=== PATIENT | female | born 2000 | race Caucasian/White ===

== ENCOUNTER 2023-01-14 20:16 | Inpatient (IN) ==
[2023-01-14] MEDS ORDERED: LIDOCAINE 1% LOCAL 20 ML VIAL INFIL PRN (21:14)
[2023-01-14] MEDS ORDERED: OXYTOCIN 30 UNITS/500 ML BAG IV PRN (21:14)
--- NOTE | 2023-01-14 21:32 | Labor Progress Brief Note ---
Date of Service January 14, 2023 Subjective 22yo @ 39w4d with PROM at 2am this morning, confirmed in the office earlier today by Ernesto Klely who advised the patient to present directly to L&D. The patient did not present to L&D and I called her myself around 5pm to ask if she was OK and if she was coming in. At that time she did not intend to come in as she did not want to be induced. She later called back to L&D and spoke with a nurse who further advised her that she should come to L&D, and the patient then agreed to come in as she was becoming worried about the baby. Upon presentation she has good FM, clear LOF, no VB and minimal irregular contractions. She notes that her cervix was "just a fingertip" dilated in the office today. She is very anxious about what having an induction will be like, and whether it will increase her risks of . Counseled on the differences between natural labor and IOL, and discussed that in the setting of PROM x 19 hours, evidence is clearly in favor of proceeding with IOL rather than waiting any longer. After answering the questions of the patient and the FOB, he says of induction, "that sounds reasonable" and she states she would like to proceed with IOL. Assessment & Plan (1) Supervision of normal intrauterine in primigravida: (2) PROM (premature rupture of membranes): Plan: IOL with pitocin, patient currently planning NCB, can have epidural on request if she changes her mind. Admission and Anticipated Discharge Date Admission Date: January 14, 2023 Physical Exam Constitutional: WD/WN, vitals as above Eyes: PERRL, conjunctivae normal, anicteric sclerae ENMT: external ear and nose normal, oropharynx normal Neck: supple Respiratory: normal respiratory effort and able to speak in complete sentences; no respiratory distress Cardiovascular: Rate/Rhythm: regular rate and regular rhythm Gastrointestinal (Abdomen): Gravid / AGA, nontender Musculoskeletal: no cyanosis or clubbing, extremities motor strength 5/5 Skin: no rashes, warm and dry Neurologic: patellar DTR's 2+ bilat, sensation intact Psychiatric: A+Ox3, euthymic affect Genitourinary: Speculum/Bimanual Exam: no vaginal lesions, no vaginal bleeding and uterus nontender OB Exam Abdomen: + vertex, + estimated weight (7) and + irregular contractions Manual OB Exam: + cervical dilation 2 cm, + cervical effacement 80%, + station -2 and + amniotic fluid clear OB Exam Monitor Tracing: + external FHT monitor used, + external uterine monitor used and + category I Lymphatic: no cervical or axillary lymphadenopathy Results & Data ([facility]) Vital Signs (Past 12 Hours) Vital Signs Temp Pulse Resp BP 01/14/23 20:30 96 H 126/74 01/14/23 20:25 97.5 F L 18 Coding Level of Care Code None Diagnoses Supervision of normal intrauterine in primigravida Z34.00 PROM (premature rupture of membranes) O42.90
[2023-01-14 21:55] LABS: Hematocrit (blood only) 34.2 % (37.0-47.0); Hemoglobin 11.9 g/dl (12.0-16.0); Mean Corpuscular Hemoglobin 29.9 pg (25.0-34.0); Mean Corpuscular Hgb Conc 34.8 g/dL (32.0-36.0); Mean Corpuscular Volume 85.9 fL (80.0-100.0); Mean Platelet Volume 10.7 fL (9.4-12.4); Platelet Count 315 K/uL (130-400); RDW Standard Deviation 40.2 fL (36.4-46.3); Red Blood Count 3.98 M/uL (4.20-5.40); White Blood Count 12.68 K/ul (4.8-10.8)
[2023-01-14] MEDS: LACTATED RINGER'S 1,000 ML IV PRN (22:33)
[2023-01-15] MEDS ORDERED: SODIUM CHLORIDE 0.9% INJ 10 ML VIAL ONE (02:22)
[2023-01-15] MEDS ORDERED: ePHEDrine sulfate 50 MG/ML AMP ONE (02:22)
[2023-01-15] MEDS ORDERED: fentaNYL citrate 100 MCG/2 ML VIAL ONE ×2 (02:22→12:31)
[2023-01-15] MEDS ORDERED: LIDOCAINE 2%/EPINEPHRINE 1:200,000 20 ML SDV ONE (02:23)
[2023-01-15] MEDS ORDERED: fentaNYL 2MCG/ML ROPIVACAINE 1.25MG/ML 100 ML BAG EPI ONE (02:23)
[2023-01-15] MEDS ORDERED: BUPIVACAINE 0.25% 30 ML VIAL ONE (02:23)
[2023-01-15] MEDS: LACTATED RINGER'S 1,000 ML IV PRN ×2 (03:15→10:40)
[2023-01-15] MEDS ORDERED: fentaNYL 2MCG/ML ROPIVACAINE 1.25MG/ML 100 ML BAG EPI PRN (05:10)
[2023-01-15] MEDS ORDERED: NALOXONE HCL 1 MG in SODIUM CHLORIDE 0.9% 1000ML 1,000 ML IV PRN (05:10)
[2023-01-15] MEDS ORDERED: NALOXONE HCL 0.4 MG/1 ML VIAL/CARP IV PRN (05:10)
[2023-01-15] MEDS ORDERED: ePHEDrine sulfate 50 MG/ML AMP IV PRN (05:10)
--- NOTE | 2023-01-15 06:20 | Labor Progress Brief Note ---
Date of Service January 15, 2023 Subjective Patient comfortable with epidural. Discussed with Noe Velasquez who just recently checked patient's cervix during straight cath, so not re-examined at this time, as patient is now resting / did not awaken her. Assessment & Plan (1) PROM (premature rupture of membranes): Plan: Continue pitocin, epidural, progress occurring. FHT reassuring and no maternal fever; GBS neg. Admission and Anticipated Discharge Date Admission Date: January 14, 2023 Physical Exam Genitourinary: 125 mod maikol + acc -dec [place] Q2-5 (inverted on tracing) Pit @ 13 Cervix per Robert is 4-5/80/-2 Results & Data ([facility]) Vital Signs (Past 12 Hours) Vital Signs Temp Pulse Resp BP Pulse Ox 01/15/23 06:11 77 113/58 L 97 01/15/23 05:56 97 01/15/23 05:56 86 01/15/23 05:56 94 H 121/73 01/15/23 05:43 78 117/65 01/15/23 05:41 77 97 01/15/23 05:26 71 112/64 97 01/15/23 05:13 78 117/65 01/15/23 05:11 78 96 01/15/23 04:56 78 121/74 97 01/15/23 04:41 65 97 01/15/23 04:42 85 125/73 01/15/23 04:26 72 122/60 97 01/15/23 04:11 97 01/15/23 04:11 76 01/15/23 04:11 85 125/67 01/15/23 03:57 75 126/67 01/15/23 03:56 78 97 01/15/23 03:41 97 01/15/23 03:41 81 01/15/23 03:41 76 130/72 01/15/23 03:27 76 124/69 01/15/23 03:26 74 97 01/15/23 03:12 85 93 01/15/23 03:11 78 130/66 01/15/23 03:09 99 01/15/23 03:09 86 01/15/23 03:09 93 H 128/67 01/15/23 03:07 88 134/80 01/15/23 03:04 90 100 01/15/23 03:05 92 H 133/77 01/15/23 03:03 84 127/72 01/15/23 03:02 18 01/15/23 03:02 97.7 F 18 01/15/23 03:00 99 H 141/89 H 01/15/23 02:59 105 H 98 01/15/23 02:54 84 99 01/15/23 02:49 108 H 100 01/15/23 02:30 96 H 132/63 01/14/23 22:54 97.5 F L 18 01/15/23 01:04 83 124/64 01/15/23 01:01 16 01/15/23 01:01 97.7 F 16 01/15/23 00:02 73 101/52 L 01/14/23 23:02 88 118/61 01/14/23 22:36 88 123/76 01/14/23 20:30 96 H 126/74 01/14/23 20:25 97.5 F L 18 Coding Level of Care Code None Diagnoses PROM (premature rupture of membranes) O42.90
--- NOTE | 2023-01-15 06:25 | Anesthesiology Consultation ---
Date of Service January 15, 2023 Assessment & Plan ASA ASA2 Proposed Anesthesia Anesthesia Type: Labor Epidural Risk / Benefits Reviewed With: PT / POA / Parent / Guardian, Accepts Plan and Informed Consent Obtained Additional Comments: pt seen during downtime pprocedures History Height/Weight Height: 5 ft 8 in Weight: 80.286 kg Allergies Allergy/AdvReac Type Severity Reaction Status Date / Time No Known Allergies Allergy Verified 01/14/23 11:16 Medications Home Medications Medication Instructions Recorded Confirmed Last Taken prenat.vits,parker,[id number] 1 tab PO DAILY 06/20/22 01/14/23 01/13/23 Active Medications Generic Name Dose Route Start Last Admin Trade Name Freq PRN Reason Stop Dose Admin Oxytocin 30 units in 500 mls @ 13 mls/hr 01/14/23 21:14 01/15/23 06:15 Pitocin IV 01/16/23 21:13 0.9 units/hr .Q24H PRN 15 mls/hr Labor Induction/Augmentation Titration Protocol 0.78 UNITS/HR Lactated Ringer's 1,000 mls @ 125 mls/hr 01/14/23 21:14 01/15/23 03:15 Lr IV 01/16/23 21:13 125 mls/hr .Q8H PRN Administration L&D Protocol Protocol Past Medical History Medical History ADHD Anxiety and depression Exercise / Class Metabolic Activity II 4-5 Yardwork/Stairs/Walk up hill Past Surgical History Surgical History S/P wisdom tooth extraction Past Anesthesia History No Hx of Anesthesia Complications and No Family Hx of Anesthesia Complications History of PONV No Hx of PONV and No Hx of Motion Sickness Social History Smoking Status: Never smoker Hx Alcohol Use: No Hx Substance Use: No Review of Systems denies fever/cough/ colds/ chest pain/ SOB/ GITA denies GITA Physical Exam Vital Signs Last Vital Signs Temp 36.5 C 01/15/23 03:02 Pulse 77 01/15/23 06:11 Resp 18 01/15/23 03:02 BP 113/58 L 01/15/23 06:11 Pulse Ox 97 01/15/23 06:11 ENMT Mouth: no TMJ abnormality and no dentition abnormality Thyromental Distance: > or= 3.5 Finger Breadths Mallampati Class: II Neck neck extension not limited Respiratory normal respiratory effort; no respiratory distress Auscultation: lungs clear to auscultation bilaterally Cardiovascular Rate/Rhythm: regular rate and regular rhythm Neurologic moves all extremities Psychiatric Orientation: alert and oriented x 3 Testing Laboratory Results 01/14/23 21:29
--- NOTE | 2023-01-15 07:47 | Labor Progress Brief Note ---
Date of Service January 15, 2023 Subjective Comfortable with epidural. Accepts cervix check. No pressure. Ongoing LOF clear. Assessment & Plan (1) PROM (premature rupture of membranes): Plan: Continue IOL, epidural, progress continues. Admission and Anticipated Discharge Date Admission Date: January 14, 2023 Physical Exam Genitourinary: Not more dilated than prior RN exam, but 100% effaced and -1 station. FHT Cat 1 [place] Q2-3 Pit @ 17 Results & Data ([facility]) Vital Signs (Past 12 Hours) Vital Signs Temp Pulse Resp BP Pulse Ox 01/15/23 07:42 83 121/74 01/15/23 07:41 82 99 01/15/23 07:26 73 98 01/15/23 07:27 74 125/63 01/15/23 07:12 86 121/60 01/15/23 07:11 106 H 100 01/15/23 06:56 74 97 01/15/23 06:57 72 119/63 01/15/23 05:05 16 01/15/23 05:05 97.5 F L 16 01/15/23 06:41 67 116/57 L 98 01/15/23 06:26 73 97 01/15/23 06:27 72 115/55 L 01/15/23 06:11 77 113/58 L 97 01/15/23 05:56 97 01/15/23 05:56 86 01/15/23 05:56 94 H 121/73 01/15/23 05:43 78 117/65 01/15/23 05:41 77 97 01/15/23 05:26 71 112/64 97 01/15/23 05:13 78 117/65 01/15/23 05:11 78 96 01/15/23 04:56 78 121/74 97 01/15/23 04:41 65 97 01/15/23 04:42 85 125/73 01/15/23 04:26 72 122/60 97 01/15/23 04:11 97 01/15/23 04:11 76 01/15/23 04:11 85 125/67 01/15/23 03:57 75 126/67 01/15/23 03:56 78 97 01/15/23 03:41 97 01/15/23 03:41 81 01/15/23 03:41 76 130/72 01/15/23 03:27 76 124/69 01/15/23 03:26 74 97 01/15/23 03:12 85 93 01/15/23 03:11 78 130/66 01/15/23 03:09 99 01/15/23 03:09 86 01/15/23 03:09 93 H 128/67 01/15/23 03:07 88 134/80 01/15/23 03:04 90 100 01/15/23 03:05 92 H 133/77 01/15/23 03:03 84 127/72 01/15/23 03:02 18 01/15/23 03:02 97.7 F 18 01/15/23 03:00 99 H 141/89 H 01/15/23 02:59 105 H 98 01/15/23 02:54 84 99 01/15/23 02:49 108 H 100 01/15/23 02:30 96 H 132/63 01/14/23 22:54 97.5 F L 18 01/15/23 01:04 83 124/64 01/15/23 01:01 16 01/15/23 01:01 97.7 F 16 01/15/23 00:02 73 101/52 L 01/14/23 23:02 88 118/61 01/14/23 22:36 88 123/76 01/14/23 20:30 96 H 126/74 01/14/23 20:25 97.5 F L 18 Coding Level of Care Code None Diagnoses PROM (premature rupture of membranes) O42.90
[2023-01-15] MEDS ORDERED: LIDOCAINE 2% MPF LOCAL 5 ML VIAL INFIL ONE ×2 (12:31→12:52)
--- NOTE | 2023-01-15 12:42 | Communication Note ---
Date of Service: January 15, 2023 Pt progressed to 9cm dilation, c/o pain. Dosed epidural with 2% lido 5cc + fentanyl 100mcg.
[2023-01-15] MEDS ORDERED: OXYTOCIN 30 UNITS/500 ML BAG IV PRN (15:27)
[2023-01-15] MEDS ORDERED: ACETAMINOPHEN 325 MG TAB PO PRN (15:27)
[2023-01-15] MEDS ORDERED: bisacodyL 10 MG SUPP PR PRN (15:27)
[2023-01-15] MEDS ORDERED: DIPHTHERIA/TETANUS/PERTUSSIS 0.5mL SYR/VIAL (Age 7+yrs) IM ONE (15:27)
[2023-01-15] MEDS ORDERED: HYDROCORTISONE ACETATE 25 MG SUPP PR PRN (15:27)
[2023-01-15] MEDS ORDERED: METHYLERGONOVINE MALEATE 0.2 MG/ML AMP ONE (15:38)
[2023-01-15] MEDS: OXYTOCIN 30 UNITS/500 ML BAG IV PRN ×2 (15:40→16:16)
[2023-01-15] MEDS ORDERED: METHYLERGONOVINE MALEATE 0.2 MG/ML AMP IM STA (16:11)
[2023-01-15] MEDS: IBUPROFEN 600 MG TAB PO PRN ×2 (16:43→21:18)
[2023-01-15] MEDS ORDERED: KETOROLAC 30 MG/ML VIAL ONE (16:47)
--- NOTE | 2023-01-15 17:20 | Delivery Summary ---
Vaginal Delivery Summary Date of Service January 15, 2023 Vaginal Delivery Summary and 2nd Degree LAC Patient is a 22-year-old G1, P0 female EDC of 01/17/2023 who presented with a history of spontaneous rupture of membranes at approximately 2:15 AM on 01/14. She was evaluated in the office early in the morning of 01/14, and was confirmed to have ruptured membranes but no contractions yet. She was instructed to proceed to labor and delivery for further evaluation however she was trying to avoid unneeded interventions and did not present to labor and delivery until after 1800 on 01/14. She was afebrile and not juan on admission. Pitocin augmentation was begun and she received effective epidural analgesia. It was difficult keeping her in a consistent contraction pattern but she progressed to full dilation and then pushed effectively over intact perineum for delivery of a viable female . After the head was delivered the rest the infant delivered easily and was placed on the mother's abdomen first attention and drying. The infant was vigorous and moving all 4 limbs. The cord was clamped and cut after 1 minute. After cord blood was obtained, the placenta was expressed intact with a three-vessel cord. bleeding was controlled with dilute Pitocin and fundal massage. She did require a dose of IM Methergine for control of bleeding. The fundus was then firm and bleeding was small. A second-degree perineal laceration was repaired with 3-0 chromic in the usual fashion. 1% lidocaine was used to infiltrate the perineal laceration site prior to closing the defect. Estimated blood loss is 500 cc. The first 250 cc of blood loss were estimated but after weighing the chux, there was an additional 250 cc of blood loss noted. At this point mother and infant were doing well after delivery. Patient has continued to be afebrile throughout her labor and delivery process. [facility] Vaginal Delivery Charge Delivery Type Details: and 2nd Degree LAC
[2023-01-15] MEDS ORDERED: KETOROLAC 30 MG/ML VIAL IV ONE (17:21)
--- NOTE | 2023-01-15 19:16 | Anesthesia Procedure Note ---
Date of Service January 15, 2023 Anesthesia Post Epidural Note Vital Signs Vital Signs: Temp Pulse Resp BP Pulse Ox 36.8 C 82 18 130/69 96 01/15/23 19:11 01/15/23 19:02 01/15/23 19:11 01/15/23 19:02 01/15/23 15:11 Pain Intensity Bilateral Abdomen: Pain Intensity: 3 Notes Mental Status: alert / awake / arousable Nausea / Vomiting: adequately controlled Pain: adequately controlled Airway Patency, RR, SpO2: stable & adequate BP & HR: stable & adequate Hydration State: stable & adequate Neuraxial Anesthesia: was administered and sensory block is resolving Anesthetic Complications: no major complications apparent and Pt Satisfied with anesthetic care Epidural: Removed without complications and With tip intact
[2023-01-15] MEDS: DOCUSATE SODIUM 100 MG CAP PO SCH (21:18)
[2023-01-15] MEDS: BENZOCAINE 20% AER SPR 82.5 GM CAN EXT PRN (21:19)
[2023-01-16] MEDS: IBUPROFEN 600 MG TAB PO PRN ×3 (03:55→21:10)
--- NOTE | 2023-01-16 06:49 | Obstetrical Progress Note ---
Date of Service January 16, 2023 Assessment & Plan (1) care following vaginal delivery: (2) PROM (premature rupture of membranes): Plan - Feeling well overall. - feeing going well. - Urinating and passing gas appropriately. - Ambulating well in the room. - Pain controlled with ibuprofen. - Hgb on 01/14 was 11.9, pending results for 01/16. - Vitals stable, WNL. Afebrile. - Routine care, progressing well. Anticipate discharge at 24-48 hours . - Plan for outpatient follow-up at 6 weeks . Admission and Anticipated Discharge Date Admission Date: January 14, 2023 Emma Davis is a 22 year old female who has a spontaneous vaginal delivery on 01/15 at 39 5/7 weeks determined by US. She experienced rupture of membranes on 01/14 at approximately 2 am and presented on 01/14 in the AM to the OB outpatient office. She was advised to present to the hospital for imminent delivery at that time and presented later that evening (01/14) for delivery. Her delivery was complicated by prolonged rupture of membranes >36 hours and post- bleeding for which she received a dose of Methergine. Susan is doing well . She is able to ambulate well and does so every 2-3 hours. She is able to void and pass gas normally. She is able to eat normally. She is nursing without issue with her right breast and notes that it is harder to nurse with her left breast. Her pain is currently 4/10 and is being managed by ibuprofen. She describes her current vaginal bleeding as heavy, and she soaked one pad overnight. Review of Systems Review of Systems: Denies fever, chills, sweats. Denies dyspnea or pleuritic pain. Denies chest pain, palpitations, pressure. Denies breast pain. Denies dysuria. Denies headache or visual changes. Physical Exam Physical Exam: General: Alert, oriented. No acute distress. Cardiac: Regular rate and rhythm. No murmurs, rubs, gallops appreciated. Respiratory: Clear to auscultation bilaterally with no wheezes, rales, rhonchi. Normal work of breathing, symmetrical chest rise. Abdomen: Uterus 2cm inferior to umbilicus and firm. Abdomen is soft and non- tender with no masses appreciated. Lower extremities: No lower extremity edema. No deep calf pain. Results & Data ([facility]) Vital Signs (Past 12 Hours) Vital Signs Temp Pulse Pulse Resp BP BP Pulse Ox 01/16/23 03:50 36.8 C 75 16 114/72 98 01/15/23 23:30 36.8 C 77 16 118/79 97 01/15/23 20:30 37.2 C 70 18 98 01/15/23 19:11 36.8 C 18 01/15/23 19:02 82 130/69 01/15/23 18:56 106 H 129/74 01/15/23 18:41 84 127/71 01/15/23 18:26 86 153/70 H O2 Del Method 01/16/23 03:50 Room Air 01/15/23 23:30 Room Air 01/15/23 20:30 Room Air 01/15/23 19:11 01/15/23 19:02 01/15/23 18:56 01/15/23 18:41 01/15/23 18:26
[2023-01-16 07:06] LABS: Hematocrit (blood only) 28.5 % (37.0-47.0); Hemoglobin 9.9 g/dl (12.0-16.0); Mean Corpuscular Hgb Conc 34.7 g/dL (32.0-36.0); Mean Corpuscular Volume 86.4 fL (80.0-100.0); Mean Platelet Volume 10.6 fL (9.4-12.4); Platelet Count 227 K/uL (130-400); RDW Coefficient of Variation 13.1 % (11.5-14.5); RDW Standard Deviation 40.9 fL (36.4-46.3); White Blood Count 14.84 K/ul (4.8-10.8)
--- NOTE | 2023-01-16 07:52 | Obstetrical Progress Note ---
Date of Service January 16, 2023 Assessment & Plan (1) care following vaginal delivery: prolonged SPROM - 36 hours prior to and moderate hemorrhage. patient remains afebrile and asymptomatic as far as blood loss. encouraged patient tostay to watch temp and for signs of infection and to help with issues. Subjective Ambulation: ambulating normally Voiding: no voiding problems Passing Gas:: Yes Diet Tolerance:: regular diet Lochia:: Moderate Feeding Type:: breast feeding Current Pain Level(1-10): 4 soaked a pad overnight - cramping is now minimal. having some issues with . Review of Systems All systems reviewed & are unremarkable except as noted in HPI & below Physical Exam Constitutional WD/WN, vitals as above Psychiatric A+Ox3, euthymic affect Genitourinary OB Exam Abdomen: + fundal height Fundus: + firm and + relation to umbilicus (1 above U); not tender no calf tenderness Results & Data ([facility]) Vital Signs (Past 12 Hours) Vital Signs Temp Pulse Resp BP Pulse Ox O2 Del Method 01/16/23 03:50 98.2 F 75 16 114/72 98 Room Air 01/15/23 23:30 98.2 F 77 16 118/79 97 Room Air 01/15/23 20:30 99.0 F 70 18 98 Room Air
[2023-01-16] MEDS: PRENATAL VITAMIN 1 TAB PO SCH (08:00)
[2023-01-16] MEDS: DOCUSATE SODIUM 100 MG CAP PO SCH ×2 (08:00→21:09)
[2023-01-16] MEDS ORDERED: bisacodyL 5 MG TABEC PO SCH (20:00)
[2023-01-17 06:19] LABS: Hematocrit (blood only) 25.7 % (37.0-47.0); Hemoglobin 8.8 g/dl (12.0-16.0)
--- NOTE | 2023-01-17 06:47 | Obstetrical Progress Note ---
Date of Service January 17, 2023 Assessment & Plan (1) care following vaginal delivery: (2) PROM (premature rupture of membranes): Plan - Feeling well overall. Feeling good about her improvement and about going home. - Infant feeing going well. - Urinating and passing gas appropriately. - Ambulating well in the room. - Pain controlled with ibuprofen. - Hgb on 01/14 was 11.9 and 9.9 on 01/16. 8.8 today on 01/17. - Vitals stable, WNL. Afebrile. - Routine care, progressing well. Anticipate discharge at 24-48 hours . - Plan for outpatient follow-up at 6 weeks . Admission and Anticipated Discharge Date Admission Date: January 14, 2023 Supervising Physician Co-Signing Physician Notes Resident Physician Supervision Note: I interviewed and examined the patient. Discussed with Dr. Chung and agree with findings and plan as documented in the note. Any exceptions or clarifications are listed here: Doing well. Plan d/c. Instructions reviewed. Documented By: Colleen Marino MD, FACOG Subjective Susan is a 22 year old female who has a spontaneous vaginal delivery on 01/15 at 39 5/7 weeks determined by US. Her delivery was complicated by prolonged rupture of membranes >36 hours and post- bleeding for which she received a dose of Methergine. Susan is doing well on day 2. She is able to ambulate well and does so every 2-3 hours. She is able to void and pass gas normally. She has stooled once thus far. She is able to eat normally. She is nursing now able to nurse with both breasts and is pumping without issue. Her pain is currently 2/10 and is being managed by ibuprofen. She describes her pain as a soreness. 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 Review of Systems Review of Systems: Denies fever, chills, sweats. Denies dyspnea or pleuritic pain. Denies chest pain, palpitations, pressure. Denies breast pain. Denies dysuria. Denies headache or visual changes. Physical Exam Physical Exam: General: Alert, oriented. No acute distress. Cardiac: Regular rate and rhythm. No murmurs, rubs, gallops appreciated. Respiratory: Clear to auscultation bilaterally with no wheezes, rales, rhonchi. Normal work of breathing, symmetrical chest rise. Abdomen: Uterus 2cm inferior to umbilicus and firm. Abdomen is soft and non- tender with no masses appreciated. Lower extremities: No lower extremity edema. No deep calf pain. Results & Data ([facility]) Vital Signs (Past 12 Hours) Vital Signs Temp Pulse Resp BP Pulse Ox O2 Del Method 01/16/23 23:10 36.5 C 76 20 113/67 99 Room Air 01/16/23 20:50 36.5 C 89 20 113/67 99 Room Air Laboratory Results CBC 01/16/23 Range/Units 06:40 WBC 14.84 H (4.8-10.8) K/ul RBC 3.30 L (4.20-5.40) M/uL Hgb 9.9 L (12.0-16.0) g/dl Hct 28.5 L (37.0-47.0) % Plt Count 227 (130-400) K/uL
[2023-01-17] MEDS: DOCUSATE SODIUM 100 MG CAP PO SCH (08:48)
[2023-01-17] MEDS: PRENATAL VITAMIN 1 TAB PO SCH (08:48)
[2023-01-17] MEDS: BENZOCAINE 20% AER SPR 82.5 GM CAN EXT PRN (11:40)
== END 2023-01-17 12:05 | disposition home or self-care (01) | DRG 806 ==
LOC: OPB 20:16 → 4S1 20:18 → 4E2 01-15 20:12